=== PATIENT | female | born 1965 | race African-American/Black ===

== ENCOUNTER 2022-06-19 11:07 | Emergency (ER) | payer MEDICAID ==
[~2022-06-19] VITALS: Ht 170.2 cm; Wt 89.8 kg
[2022-06-19 12:03] VITALS: BP_SYST 118
[2022-06-20] MEDS ORDERED: CIPR500T5 PO (08:32)
[2022-06-20] MEDS ORDERED: PHEN-726 PO (08:33)
== END 2022-06-19 15:07 | disposition left against medical advice (07) ==
LOC: SED 11:07
DX: N32.89 Other specified disorders of bladder (principal); Z53.21 Procedure and treatment not carried out due to patient leaving prior to being seen by health care provider
CPT/HCPCS: 99281

== ENCOUNTER 2022-06-20 05:55 | Emergency (ER) | payer MEDICAID ==
[~2022-06-20] VITALS: Ht 170.2 cm; Wt 89.8 kg
[2022-06-20 06:10] VITALS: BP_SYST 116
[2022-06-20 06:43] LABS: BASOPHILS % (AUTO) 1.1 % (0.0-2.0); EOSINOPHILS # (AUTO) 0.1 K/uL (0.0-0.4); HEMOGLOBIN 13.2 g/dL (12.0-16.0); LYMPHOCYTES # (AUTO) 1.4 K/uL (1.0-5.5); MEAN CORPUSCULAR HEMOGLOBIN 33 pg (27-31); MEAN CORPUSCULAR HGB CONC 34 % (32-36); MEAN CORPUSCULAR VOLUME 98 fL (79.0-98.0); MONOCYTES # (AUTO) 0.3 K/uL (0.0-1.0); NEUTROPHILS % (AUTO) 51.9 % (40.0-70.0); PLATELET COUNT (AUTO) 243 K/uL (130-430); RED BLOOD CELL COUNT(AUTO) 3.98 MIL/uL (4.2-6.2); RED CELL DISTRIBUTION WIDTH 12.1 % (9.0-15.0); WHITE BLOOD COUNT (AUTO) 3.8 K/uL (4.8-10.8)
[2022-06-20 07:03] LABS: CALCIUM 8.9 mg/dL (8.4-11.0); CREATININE 1.12 mg/dL (0.55-1.30)
[2022-06-20 07:10] LABS: ALBUMIN 3.5 g/dL (3.4-4.8); TOTAL BILIRUBIN 0.6 mg/dL (0.0-1.0)
[2022-06-20 08:22] LABS: BILIRUBIN,URINE NEGATIVE (NEGATIVE); BLOOD, URINE NEGATIVE (NEGATIVE); CLARITY/URINE CLEAR (CLEAR); COLOR,URINE YELLOW (YELLOW); GLUCOSE,URINE NEGATIVE (NEGATIVE); KETONES,URINE NEGATIVE (NEGATIVE); LEUKOCYTE ESTERASE ,URINE 1+ (NEGATIVE); NITRITE, URINE NEGATIVE (NEGATIVE); PROTEIN URINE NEGATIVE (NEGATIVE); UROBILINOGEN,URINE 0.2 (0.2-1.0)
[2022-06-20 08:32] LABS: BACTERIA,URINE FEW /HPF (None Seen); MUCUS,URINE 1+ /LPF (None Seen); RBC,URINE 0-3 /HPF (0-3)
[2022-06-20] MEDS ORDERED: CIPR500T5 PO (08:32)
[2022-06-20] MEDS ORDERED: PHEN-726 PO (08:33)
[2022-06-20 08:38] VITALS: BP_SYST 130
== END 2022-06-20 08:37 | disposition home or self-care (01) ==
LOC: SED 05:55
DX: N39.0 Urinary tract infection, site not specified (principal); R30.0 Dysuria; R35.0 Frequency of micturition; R39.15 Urgency of urination; Z79.899 Other long term (current) drug therapy
CPT/HCPCS: 36415; 80053; 81000; 85025; 87086; 99283

== ENCOUNTER 2022-07-06 05:49 | Emergency (ER) | payer MEDICAID ==
[~2022-07-06] VITALS: Ht 170.2 cm; Wt 88.5 kg
[~2022-07-06 05:49] MED LIST: CIPR500T5 PO; PHEN-726 PO
[2022-07-06 06:05] VITALS: BP_SYST 115
[2022-07-06 06:35] LABS: BASOPHILS # (AUTO) 0.1 K/uL (0.0-0.2); BASOPHILS % (AUTO) 1.1 % (0.0-2.0); EOSINOPHILS # (AUTO) 0.1 K/uL (0.0-0.4); HEMATOCRIT 39.8 % (36-48); HEMOGLOBIN 13.2 g/dL (12.0-16.0); LYMPHOCYTES # (AUTO) 1.3 K/uL (1.0-5.5); LYMPHOCYTES % (AUTO) 27.2 % (20.5-51.5); MEAN CORPUSCULAR HEMOGLOBIN 33 pg (27-31); MEAN CORPUSCULAR HGB CONC 33 % (32-36); MEAN CORPUSCULAR VOLUME 98 fL (79.0-98.0); MONOCYTES # (AUTO) 0.3 K/uL (0.0-1.0); MONOCYTES % (AUTO) 6.1 % (1.7-9.3); NEUTROPHILS # (AUTO) 3.1 K/uL (1.8-7.7); NEUTROPHILS % (AUTO) 62.6 % (40.0-70.0); PLATELET COUNT (AUTO) 259 K/uL (130-430); RED BLOOD CELL COUNT(AUTO) 4.05 MIL/uL (4.2-6.2); RED CELL DISTRIBUTION WIDTH 12.1 % (9.0-15.0); WHITE BLOOD COUNT (AUTO) 4.9 K/uL (4.8-10.8)
[2022-07-06 06:49] LABS: ANION GAP 8 (5-15); CALCIUM 8.7 mg/dL (8.4-11.0); CHLORIDE 106 mmol/L (98-107); GFR AFRICAN AMERICAN 54 mL/min (>90); GLUCOSE 95 mg/dL (70-99); UREA NITROGEN, BLOOD 6 mg/dL (8-21)
[2022-07-06 06:53] LABS: ALANINE AMINOTRANSFERASE 14 U/L (12-78); ALBUMIN 3.4 g/dL (3.4-4.8); AMYLASE 88 U/L (0-100); ASPARTATE AMINOTRANSFERASE 14 U/L (10-37); C-REACTIVE PROTEIN QUANT < 0.2 mg/dL (0-0.5); LIPASE 73 U/L (73-393); TOTAL BILIRUBIN 0.4 mg/dL (0.0-1.0)
[2022-07-06] MEDS ORDERED: LOM2.5 PO (07:28)
[2022-07-06 07:57] VITALS: BP_SYST 115
== END 2022-07-06 07:55 | disposition home or self-care (01) ==
LOC: SED 05:49
DX: R19.7 Diarrhea, unspecified (principal); Z79.899 Other long term (current) drug therapy
CPT/HCPCS: 36415; 80053; 82150; 83605; 83690; 84703; 85025; 86140; 99283

== ENCOUNTER 2022-12-12 08:42 | Emergency (ER) | payer MEDICAID ==
[~2022-12-12] VITALS: Ht 170.2 cm; Wt 61.2 kg
[2022-12-12 08:42] VITALS: BP_SYST 140; PULSE 86; RESP 18; TEMP 97.2; O2SAT 98
[~2022-12-12 08:42] MED LIST changes: +LOM2.5 PO
[2022-12-12] MEDS ORDERED: ACET325T PO (09:55)
[2022-12-12] MEDS ORDERED: TRAM50TA2 PO (10:14)
[2022-12-12 10:16] VITALS: BP_SYST 140; PULSE 86; RESP 18; TEMP 97.2; O2SAT 98
== END 2022-12-12 10:15 | disposition home or self-care (01) ==
LOC: SED 08:42
DX: S81.031A Puncture wound without foreign body, right knee, initial encounter (principal); S83.91XA Sprain of unspecified site of right knee, initial encounter; Z88.2 Allergy status to sulfonamides; Z79.899 Other long term (current) drug therapy; W10.0XXA Fall (on)(from) escalator, initial encounter; Y93.89 Activity, other specified; Y92.89 Other specified places as the place of occurrence of the external cause; Y99.8 Other external cause status
CPT/HCPCS: 73564; 99283